=== PATIENT | female | born 1995 | race African-American/Black ===

== ENCOUNTER 2016-05-04 09:25 | Emergency (ER) | payer MEDICAID ==
[~2016-05-04] VITALS: Ht 167.6 cm; Wt 110.0 kg
[~2016-05-04 09:25] MED LIST: BENZ100 PO; PRED20 PO; ZITH250T PO
[2016-05-04 09:28] VITALS: BP 150/86; PULSE 118; RESP 16; TEMP 97.4; O2SAT 100
[2016-05-04 10:14] LABS: BACTERIA, URINE MOD /hpf; BLOOD, URINE NEG (NEG); COMMENT (UR) CULTURE INDICATED; CULTURE IF INDICATED CULTURE INDICATED; GLUCOSE,URINE NEG (NEG); KETONE, URINE 10 mg/dL (NEG); MUCUS URINE MOD /lpf (OCC); NITRITE,URINE NEG (NEG); PH, URINE 6.5 (5.0-8.5); SQUAMOUS EPITHELIAL CELL URINE 6 /hpf (0-5); URINE COLOR YELLOW (YELLW/STRAW)
[2016-05-04] MEDS ORDERED: LIDOCAINE HCL 1% 50 ML VIAL IM ONE (10:45)
[2016-05-04] MEDS ORDERED: AZITHROMYCIN PWD FOR SUSP 1 GM PACKET PO ONE (10:45)
[2016-05-04] MEDS ORDERED: cefTRIAXone 250 MG VIAL IM ONE (10:45)
[2016-05-04] MEDS ORDERED: METR-1 PO (11:37)
[2016-05-04] MEDS ORDERED: MACR100C2 PO (11:37)
--- NOTE | 2016-05-04 11:38 | PD ---
HPI Chief Complaint: Abdominal Pain Time Seen by Provider: 09:36 Travel History International Travel<30 days: No Contact w/Intl Traveler<30days: No Traveled to known affect area: No History of Present Illness HPI Patient is a 21-year-old female who presents emergency department with complaint of pelvic pain, concern for and vaginal discharge. Patient states that she has a slight amount of pressure and/or discomfort for the last 1 -2 weeks. This is primarily in the low pelvis. Associated with urinary frequency and slight dysuria. Increasing abnormal vaginal discharge that is thick and malodorous. Patient's last menstrual period was March 17, 2016. She is concern for . She has not taken any home test. [facility] Past Medical History Medical History: Denies Significant Hx Diminished Hearing: No Tetanus Vaccination: > 5 Years Influenza Vaccination: No ?: Unknown LMP: 03/17/16 : 1 Para: 0 Miscarriage: 1 : 0 Past Surgical History Surgical History: No Previous Surgery Social History Alcohol Use: No Tobacco Use: No Substance Use: No (HX MARIJUANA USE) Allergies-Medications (Allergen,Severity, Reaction): Coded Allergies: No Known Allergies (Unverified , 05/04/16) Reported Meds & Prescriptions Reported Meds & Active Scripts Active No Active Prescriptions or Reported Medications Review of Systems Except as stated in HPI: all other systems reviewed are Neg Physical Exam Narrative GENERAL: Well-appearing female in no acute distress SKIN: Warm and dry. HEAD: Normocephalic. EYES: No scleral icterus. No injection or drainage. ENT: Mucous membranes pink and moist. NECK: Supple CARDIOVASCULAR: Regular rate and rhythm. RESPIRATORY: No accessory muscle use. GASTROINTESTINAL: Abdomen soft, non-tender, nondistended. GENITOURINARY: Speculum examination reveals copious thick malodorous vaginal discharge. Mild cervical motion tenderness on exam. No palpable masses. MUSCULOSKELETAL: Normal gait NEUROLOGICAL: Awake and alert. Normal speech. PSYCHIATRIC: Appropriate mood and affect; insight and judgment normal. Data Data Last Documented VS Vital Signs Date Time Temp Pulse Resp B/P Pulse Ox O2 Delivery O2 Flow Rate FiO2 05/04/16 09:50 16 05/04/16 09:28 97.4 118 150/86 100 Orders Gc And Chlamydia Pcr (05/04/16 09:44) Wet Prep Profile (05/04/16 09:44) Urinalysis - C+S If Indicated (05/04/16 09:44) Ed Urine Pregnancytest Poc (05/04/16 09:44) Urine Culture (05/04/16 09:55) Azithromycin Powd Pack (Zithromax Powd P (05/04/16 10:45) Ceftriaxone Inj (Rocephin Inj) (05/04/16 10:45) Lidocaine 1% Inj (50 Ml) (Xylocaine 1% I (05/04/16 10:45) Labs Laboratory Tests Test 05/04/16 05/04/16 09:55 11:00 Urine Color YELLOW Urine Turbidity HAZY Urine pH 6.5 Urine Specific Spicer 1.030 Urine Protein 30 mg/dL Urine Glucose (UA) NEG mg/dL Urine Ketones 10 mg/dL Urine Occult Blood NEG Urine Nitrite NEG Urine Bilirubin NEG Urine Urobilinogen 2.0 MG/DL Urine Leukocyte Esterase LARGE Urine RBC 106 /hpf Urine WBC 163 /hpf Urine Squamous Epithelial 6 /hpf Cells Urine Bacteria MOD /hpf Urine Mucus MOD /lpf Microscopic Urinalysis Comment CULTURE INDICATED Clue Cells (Wet Prep) NONE SEEN Vaginal Trichomonas (Wet Prep) PRESENT Vaginal Yeast (Wet Prep) NONE SEEN MDM Medical Decision Making Medical Screen Exam Complete: Yes Emergency Medical Condition: Yes Medical Record Reviewed: Yes Differential Diagnosis Patient is a 21-year-old female here with complaint of pelvic pressure, vaginal discharge, and concern for . Differential includes , ectopic , PID, sexual transmitted infections, UTI. Narrative Course Patient exam is significant for very copious malodorous vaginal discharge. Given that she was empirically covered for gonorrhea and chlamydia with Rocephin and azithromycin. Her urine test was positive but her abdominal exam is unremarkable and my concern for ectopic is exceedingly low. Patient based on LMP would be approximately 6 weeks 6 days today. Her wet prep showed Trichomonas, will treat for Flagyl for home. Her urinalysis shows large leukocyte esterase with red, white cells and bacteria with little contamination so will treat with Macrobid for home. Encouraged her to follow-up with [facility] to establish care for this . Diagnosis Primary Impression: PID (acute pelvic inflammatory disease) Additional Impressions: Trichomonas infection Urinary tract infection Qualified Code: N30.01 - Acute cystitis with hematuria Qualified Code: Z3A.01 - Less than 8 weeks gestation of Referrals: [facility] call for appointment [facility] call for appointment Additional Instructions: Finish antibiotics prescribed. Follow-up with [facility] to establish care for this . Med/Other Pt SpecificInfo: Prescription(s) given Scripts Nitrofurantoin Monohydrate Macrocrystals (Macrobid)100 Mg [id number] Mg PO BID 7 Days Ref 0 Prov:Michaela Messina MD 05/04/16 Metronidazole (Flagyl)500 Mg [id number] Mg PO TID 7 Days Ref 0 Prov:Michaela Messina MD 05/04/16 Disposition: 01 DISCHARGE HOME Condition: Stable Michaela Messina MD May 04, 2016 11:37
[2016-05-04 13:47] LABS: CHLAMYDIA PCR DETECTED (NOT DETECT); NEISSERIA PCR NOT DETECTED (NOT DETECT)
== END 2016-05-04 12:14 | disposition home or self-care (01) ==
LOC: NEPA 09:25
DX: O98.311 Other infections with a predominantly sexual mode of transmission complicating pregnancy, first trimester (principal); O99.89 Other specified diseases and conditions complicating pregnancy, childbirth and the puerperium; O23.40 Unspecified infection of urinary tract in pregnancy, unspecified trimester; A59.9 Trichomoniasis, unspecified; Z3A.01 Less than 8 weeks gestation of pregnancy; N73.9 Female pelvic inflammatory disease, unspecified
CPT/HCPCS: 81001; 84703; 87086; 87210; 87491; 87591; 96372; 99284; J0696